=== PATIENT | male | born 1960 ===

== ENCOUNTER 2017-06-23 08:33 | Emergency (ER) | payer MEDICAID ==
[~2017-06-23] VITALS: Ht 193 cm; Wt 118.8 kg
[2017-06-23 08:39] VITALS: Ht 193 cm; Wt 118.8 kg
[2017-06-23 09:05] LABS: BASOPHIL % 0.3 % (0-2); PLATELET COUNT 276 x10^3mcL (130-400); RED CELL DISTRIBUTION WIDTH 13.9 % (11.5-14.5)
[2017-06-23 09:17] LABS: CARBON DIOXIDE 27.1 mmol/L (21-32); CREATININE SERUM 1.4 mg/dL (0.7-1.3); POTASSIUM SERUM 3.7 mmol/L (3.5-5.1)
[2017-06-23 09:21] LABS: ALBUMIN 4.2 g/dL (3.4-5.0); BILIRUBIN TOTAL 2.2 mg/dL (0.20-1.00)
[2017-06-23 09:22] LABS: TOTAL PROTEIN, SERUM 8.3 g/dL (6.4-8.2)
[2017-06-23 11:35] VITALS: BP 110/74
== END 2017-06-23 11:35 | disposition home or self-care (01) ==
LOC: ED 08:33
PROVIDERS: Emergency Medicine
DX: R10.32 Left lower quadrant pain (principal); R11.10 Vomiting, unspecified; R19.7 Diarrhea, unspecified
CPT/HCPCS: 83880; 87804; J2270; J2405; J7030; Q0092

== ENCOUNTER 2017-06-25 10:06 | Inpatient (IN) | payer MEDICAID ==
[~2017-06-25] VITALS: Ht 193 cm; Wt 118.8 kg
[2017-06-25 10:21] VITALS: Ht 193 cm; Wt 118.8 kg
[2017-06-25 12:02] LABS: PLATELET COUNT 257 x10^3mcL (130-400); RED CELL DISTRIBUTION WIDTH 14.4 % (11.5-14.5)
[2017-06-25 12:03] LABS: CALCIUM 8.6 mg/dL (8.5-10.1); CARBON DIOXIDE 31.1 mmol/L (21-32); CHLORIDE SERUM 100 mmol/L (98-107); CREATININE SERUM 1.2 mg/dL (0.7-1.3); GFR1 > 60 mL/min; GLUCOSE SERUM 107 mg/dL (74-106); POTASSIUM SERUM 3.7 mmol/L (3.5-5.1); SODIUM SERUM 141 mmol/L (136-145)
[2017-06-25 12:05] LABS: microscopic required? YES; urine erythrocyte NEGATIVE (NEGATIVE)
[2017-06-25 12:08] LABS: ALBUMIN 3.8 g/dL (3.4-5.0); ALKALINE PHOSPHATASE 65 U/L (46-116); ALT/SGPT 45 U/L (16-63); AMYLASE 43 U/L (25-115); AST/SGOT 23 U/L (15-37); BILIRUBIN TOTAL 1.1 mg/dL (0.20-1.00); LIPASE 101 IU/L (73-393); TOTAL PROTEIN, SERUM 7.9 g/dL (6.4-8.2)
[2017-06-25 12:11] LABS: BASOPHIL % 2.2 % (0-2)
[2017-06-25] MEDS ORDERED: GOOD SENSE OMEP20 MG PO (15:15)
[2017-06-25] MEDS ORDERED: AMBIEN5 MG PO (15:15)
[2017-06-25] MEDS ORDERED: LIPI10 PO (15:16)
[2017-06-25 15:22] VITALS: BP 141/86
[2017-06-25 15:33] LABS: T3 TOTAL 1.04 ng/mL
[2017-06-25 16:03] LABS: FREE T4 0.93 ng/dL (0.76-1.46); FREE THYROXINE INDEX 1.9 ug/dL (1.4-4.5); T4(THYROXINE) 6.2 ug/dL (4.7-13.3)
[2017-06-25 16:26] LABS: CHOLESTEROL/HDL RATIO 3.3; MAGNESIUM 2.4 mg/dL (1.8-2.4); PHOSPHOROUS 3.1 mg/dL (2.5-4.9)
[2017-06-25 17:09] VITALS: BP 127/86
[2017-06-25 20:56] VITALS: BP 120/80
[2017-06-26 05:02] VITALS: BP 116/84
[2017-06-26 09:13] LABS: BASOPHIL % 0.4 % (0-2); PLATELET COUNT 257 x10^3mcL (130-400); RED CELL DISTRIBUTION WIDTH 13.9 % (11.5-14.5)
[2017-06-26 09:19] VITALS: BP 111/80
[2017-06-26 09:28] LABS: CALCIUM 8.2 mg/dL (8.5-10.1); CARBON DIOXIDE 29.2 mmol/L (21-32); CHLORIDE SERUM 97 mmol/L (98-107); CREATININE SERUM 1.2 mg/dL (0.7-1.3); GFR1 > 60 mL/min; GLUCOSE SERUM 124 mg/dL (74-106); MAGNESIUM 2.2 mg/dL (1.8-2.4); PHOSPHOROUS 2.7 mg/dL (2.5-4.9); POTASSIUM SERUM 3.1 mmol/L (3.5-5.1); SODIUM SERUM 125 mmol/L (136-145)
[2017-06-26] MEDS ORDERED: SIMETHICONE80 MG CH (11:29)
[2017-06-26 12:43] VITALS: BP 111/80
[2017-06-26 13:20] LABS: CALCIUM 8.8 mg/dL (8.5-10.1); CARBON DIOXIDE 31.1 mmol/L (21-32); CHLORIDE SERUM 101 mmol/L (98-107); CREATININE SERUM 1.3 mg/dL (0.7-1.3); GFR1 > 60 mL/min; GLUCOSE SERUM 101 mg/dL (74-106); POTASSIUM SERUM 3.6 mmol/L (3.5-5.1); SODIUM SERUM 137 mmol/L (136-145)
== END 2017-06-26 13:12 | disposition home or self-care (01) ==
LOC: ED 10:06 → DU 14:14
PROVIDERS: Emergency Medicine; Family Medicine
DX: K76.0 Fatty (change of) liver, not elsewhere classified (principal); N17.0 Acute kidney failure with tubular necrosis; E78.00 Pure hypercholesterolemia, unspecified; E78.5 Hyperlipidemia, unspecified; M10.9 Gout, unspecified; K21.9 Gastro-esophageal reflux disease without esophagitis; G47.00 Insomnia, unspecified; E02 Subclinical iodine-deficiency hypothyroidism; Z79.899 Other long term (current) drug therapy
CPT/HCPCS: 83880; 84439; J2405; J2543; J3010; J7030; Q0092; Q9967